=== PATIENT | male | born 1985 | race Caucasian/White ===

== ENCOUNTER 2019-06-08 01:32 | Emergency (ER) | payer OTHER ==
[2019-06-08] MEDS ORDERED: NORCO 5/325 MG PO ONE (01:59)
[2019-06-08] MEDS ORDERED: TETRACAINE 0.5% STERI-UNIT SOL OP STA (01:59)
[2019-06-08] MEDS ORDERED: Fluor-I-Strip/Ful-Flo OP ONE ×2 (01:59→02:01)
[2019-06-08] MEDS ORDERED: Adacel Vial IM ONE ×2 (01:59→02:05)
--- NOTE | 2019-06-08 01:59 | ERPHSYRPT ---
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 Pt wore safety glasses practically the whole time. Left eye is red, unable to note any object in eye. Eye is watering. Physician History: The patient is a 33-year-old male who presents with a chief complaint of left eye pain. Onset was this evening. He states he awoke with a burning sensation and a sensation of a foreign body in his left eye. 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 He did not think he required any retained foreign body in the left or right eye while grinding and did not sense a foreign body in his eye during this time. He reports having photokeratitis in the past but this did not feel the same. His last tetanus prophylaxis is unknown but he thinks is well over 10 years. He does not take anything for the pain nor has he tried to flush his eye prior to arrival. He was accompanied by his who reportedly was waiting for him on the parking lot. There is no concern for COVID-19 infection. Timing/Duration: today Severity: mild Associated Symptoms: No nausea, No vomiting Allergies/Adverse Reactions: Penicillins Allergy (Mild, Verified 06/08/19 01:50) pt unsure Hx Tetanus, Diphtheria Vaccination/Date Given: No Hx Influenza Vaccination/Date Given: No Hx Pneumococcal Vaccination/Date Given: No Immunizations Up to Date: No Travel Risk - International Travel Have you traveled outside of the country in past 3 weeks: No Have you or anyone close to you been diagnosed with or: No Do your reside in a community with a known COVID-19 case?: Yes If Yes where:: [place] - Coronavirus Screening Has patient experienced Coronavirus symptoms: No - Review of Systems Constitutional: No Fever, No Chills Eyes: Eye Pain, Eye Redness, Photophobia, Tearing, Vision Changes, Foreign Body Sensation, No Discharge, No Itchy, No Double Vision All Other Systems: Reviewed and Negative - Past Medical History Pertinent Past Medical History: No Neurological History: No Pertinent History ENT History: No Pertinent History Cardiac History: No Pertinent History Respiratory History: No Pertinent History Endocrine Medical History: No Pertinent History Musculoskeletal History: No Pertinent History GI Medical History: No Pertinent History History: No Pertinent History Psycho-Social History: No Pertinent History Male Reproductive Disorders: No Pertinent History - Past Surgical History Past Surgical History: No Neuro Surgical History: No Pertinent History Cardiac: No Pertinent History Respiratory: No Pertinent History Gastrointestinal: No Pertinent History Genitourinary: No Pertinent History Musculoskeletal: No Pertinent History Male Surgical History: No Pertinent History - Social History Smoking Status: Former smoker How long have you smoked: 10 Exposure to second hand smoke: Yes Drug Use: none Patient Lives Alone: No - Nursing Vital Signs Nursing Vital Signs: Initial Vital Signs Temperature 97.7 F 06/08/19 01:39 Pulse Rate 71 06/08/19 01:39 Respiratory Rate 17 06/08/19 01:39 Blood Pressure 135/82 06/08/19 01:39 O2 Sat by Pulse Oximetry 99 06/08/19 01:39 Pain Scale Pain Intensity 7 - Physical Exam General Appearance: no apparent distress, alert Eye Exam: PERRL/EOMI (Pupils were midsize estimated to be 4 mm diameter symmetric and reactive. There was no APD. Visual acuity was 20/30 in the left eye and 20/30 in the right eye and 20/30 in both. There is no hyphema or hypopyon. There is no nystagmus or visual field cuts. The conjunctive a in the left eye appeared to be injected and the patient had tearing present. I was unable to check ocular pressure due to lack of a Franklin-Pen in this emergency department. I cannot do a slit-lamp exam because there was no slit-lamp exam available in this emergency department. There appeared to be a foreign body located to about the 4:00 region of the iris/limbus. After a topical anesthetic was applied to the left eye I was able to gently apply a wet Q-tip over the part of the eye with the foreign body and remove a speck of what is believed to be metal that was an estimated 1 mm or less in diameter. Both eyelids were everted and there appeared to be no evidence of retained foreign body under the eyelids. Fluorescein staining did not reveal any uptake of the floor seen to suggest photokeratitis or corneal abrasion. There is no evidence of Mariann's sign.), photophobia (Photophobia in the L eye), No scleral icterus, No EOM palsy/anisocoria Ears, Nose, Throat Exam: normal ENT inspection Neck Exam: normal inspection, non-tender, supple Respiratory Exam: normal breath sounds, lungs clear, airway intact, No chest tenderness, No respiratory distress, No diminished breath sounds Cardiovascular Exam: regular rate/rhythm, normal heart sounds, capillary refill <2 sec, No murmur, No friction rub, No gallop Rectal Exam: deferred Neurologic Exam: alert, oriented x 3, cooperative Skin Exam: normal color, warm, dry, No rash, No petechiae, No jaundice SpO2: 99 Procedures - Eye Procedure Alcaine Drops Administered: Yes Eye FB Removal: removal w/ cotton swab Antibiotic Oinment/Drps Admin: left eye - Course Nursing assessment & vital signs reviewed: Yes - CT Exams Other CT Interpretation: Negative (CT orbits negative for retained foreign body) Ordered Tests: Active Orders 24 hr Category Date Time Status Isolation, Initiate & Maintain Q4H Care 06/08/19 01:49 Active Visual Acuity STAT Care 06/08/19 01:59 Active ORBITS WITHOUT CONTRAST [CT] Stat Exams 06/08/19 02:00 Taken Medication Summary Discontinued Medications Generic Name Dose Route Start Last Admin Trade Name Anny PRN Reason Stop Dose Admin Hydrocodone Bitart/Acetaminophen 2 tab 06/08/19 01:59 06/08/19 02:06 [place] 5/325 Mg PO 06/08/19 02:00 2 tab STAT ONE Administration Hydrocodone Bitart/Acetaminophen Confirm 06/08/19 02:05 [place] 5/325 Mg Administered 06/08/19 02:06 Dose 2 tab .ROUTE .STK-MED ONE Diphtheria/Tetanus/Acell Pertussis 0.5 ml 06/08/19 01:59 06/08/19 02:14 Adacel Vial IM 06/08/19 02:00 0.5 ml .ONCE ONE Administration Diphtheria/Tetanus/Acell Pertussis Confirm 06/08/19 02:05 Adacel Vial Administered 06/08/19 02:06 Dose 0.5 ml IM .STK-MED ONE Erythromycin Confirm 06/08/19 02:01 Erythromycin 1 Gm Administered 06/08/19 02:02 Dose 1 gm .ROUTE .STK-MED ONE Erythromycin 5 gm 06/08/19 02:12 06/08/19 02:13 Erythromycin 1 Gm OP 06/08/19 02:13 5 gm STAT STA Administration Fluorescein Sodium 1 mg 06/08/19 01:59 06/08/19 02:03 Dhmqe-L-Wicmf/Ful-Gonzalo OP 06/08/19 02:00 1 mg STAT ONE Administration Fluorescein Sodium Confirm 06/08/19 02:01 Eqiip-W-Vocid/Ful-Gonzalo Administered 06/08/19 02:02 Dose 1 mg OP .STK-MED ONE Tetracaine HCl 4 ml 06/08/19 01:59 06/08/19 02:02 Tetracaine 0.5% Steri-Unit Sandra OP 06/08/19 02:00 4 ml STAT STA Administration Tetracaine HCl Confirm 06/08/19 02:00 Tetracaine 0.5% Steri-Unit Sandra Administered 06/08/19 02:01 Dose 4 ml OP .STK-MED ONE - Progress Progress: improved Progress Note: 06/08/19 02:25 Tetracaine drops were applied to the left eye almost immediate relief in his left eye pain. I was able to remove a 1 mm or less in size of what is believed to be piece of metal using a wet Q-tip from the anterior aspect of the left eye , specifically to the 4:00 region of the iris/cornea along the joey-limbus region. I will go ahead and update the patient's Tdap prophylaxis and erythromycin ophthalmic ointment was applied to the eye. 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 I suspect his CT will likely be negative. It appears he has no evidence of a corneal abrasion or photokeratitis on my exam. Ultimately, I plan to discharge the patient with outpatient referral to an health plan specialist ideally within the next couple days given that it is the weekend to undergo reevaluation and to have a complete eye exam done given that I did not have the proper equipment to perform an exam in the emergency department tonight. And I think emergent ophthalmology referral is warranted at this time based on my exam findings and interventions. Counseled pt/family regarding: diagnosis, need for follow-up, rad results - Departure Departure Disposition: Home Clinical Impression: Acute left eye pain, Foreign body of eye, external, left Condition: Good Critical Care Time: No Referrals: JANNY ESCOTO, OD [NON-STAFF PHY W/O PRIVILEGES] - Instructions: Foreign Body in Eye (DC) Additional Instructions: Please follow-up with [facility] as soon as possible, ideally for further evaluation and management. The office is located at: [address] [id number] Please wear proper eye protection/safety glasses when grinding metal or hammering objects in the future. Please use proper shielding at all times when welding. Prescriptions: Hydrocodone/APAP 5-325 Tab^^^ [[place] 5-325 Tablet^^^] 1 tab PO Q6HPRN PRN #10 tablet MDD 6 PRN Reason: Pain Erythromycin Base 3.5 gm [Erythromycin 3.5 GM OPHTH.] 3.5 gm OP QID #1 tube
[2019-06-08] MEDS ORDERED: TETRACAINE 0.5% STERI-UNIT SOL OP ONE (02:00)
[2019-06-08] MEDS ORDERED: Erythromycin 1 GM ONE (02:01)
[2019-06-08] MEDS ORDERED: NORCO 5/325 MG ONE (02:05)
[2019-06-08] MEDS ORDERED: Erythromycin 1 GM OP STA (02:12)
[2019-06-08 02:24] VITALS: O2SAT 99
[2019-06-08 03:09] VITALS: BP 138/81; PULSE 65
--- NOTE | 2019-06-08 08:24 | XRAY ---
Indication: Pain following welding. Possible foreign body. Multiple contiguous axial images obtained through the orbits. Sagittal and coronal reformatted images obtained. Comparison: None No acute fracture, suspicious bony lesions, or radiopaque foreign body. Orbits including roof, almendarez, and floors intact. Paranasal sinuses and nasal passages are clear. Minimal nasal septal deviation to the left. A few bilateral dental amalgams produces beam artifact. Remaining visualized noncontrasted soft tissues including base of the brain unremarkable. Impression: Negative CT orbits. Comment: Preliminary interpretation was made by [facility]. No critical discrepancy.
== END 2019-06-08 03:09 | disposition home or self-care (01) ==
LOC: ED 01:32
DX: H57.12 Ocular pain, left eye (principal); T15.02XA Foreign body in cornea, left eye, initial encounter; S00.252A Superficial foreign body of left eyelid and periocular area, initial encounter; X58.XXXA Exposure to other specified factors, initial encounter; Y93.89 Activity, other specified; Y92.89 Other specified places as the place of occurrence of the external cause
CPT/HCPCS: 70480; 90471; 90715; 99284; A9270-GY